=== PATIENT | female | born 1980 | race Caucasian/White ===

== ENCOUNTER → 2017-03-19 | Outpatient (CLI) | payer BC ==
[2016-02-05 03:57] VITALS: BP 105/65
--- NOTE | 2017-03-19 10:45 | MRI ---
MRI SPINE CERVICAL WITHOUT CONTRAST CLINICAL HISTORY: 36-year-old female with neck pain radiating into her right arm. COMPARISON: None. Technique: Multiplanar, multisequence MRI images of the cervical spine were obtained without the adm inistration of intravenous contrast. FINDINGS: Straightening of the cervical lordosis is imaged. Alignment is maintained. The craniocervic al junction is normal. Vertebral body and disc space height are maintained. Vertebral marrow and inte rvertebral disc space signal are normal. Patchy T2 STIR hyperintense signal in the right lateral col umn of the cord secondary to right central disc extrusion and uncovertebral joint hypertrophy that pr oduce effacement of the subarachnoid spaces at this level with significant ventral cord flattening an d associated moderate neural foraminal stenosis. The visualized posterior fossa structures are augusto l. C2-C3: No central canal or neural foraminal stenosis. C3-C4: No central canal or neural foraminal stenosis. C4-C5: Mild uncovertebral joint hypertrophy without central canal or neural foraminal stenosis. C5-C6: Large right central disc extrusion that effaces the right ventral subarachnoid space with sign ificant flattening of the right ventral cord with edema. Mild right neural foraminal stenosis seconda ry to disc extrusion and uncovertebral joint hypertrophy. Central canal measures 9.1 mm. C6-C7: No central canal or neural foraminal stenosis. C7-T1: No central canal or neural foraminal stenosis. Paraspinous soft tissues are unremarkable. IMPRESSION: Right central disc extrusion superimposed upon uncovertebral joint hypertrophy at C5-C6 that produces significant flattening of the right ventral cord with edema/myelomalacia and associated mild neural foraminal stenosis. Reported By:
== END | disposition home or self-care (01) ==
LOC: RAD 08:31
PROVIDERS: ATTEND Internal Medicine
DX: M50.222 Other cervical disc displacement at C5-C6 level (principal)
CPT/HCPCS: 72141

== ENCOUNTER → 2017-06-02 | Outpatient (CLI) | payer BC ==
[2016-02-05 03:57] VITALS: BP 105/65
--- NOTE | 2017-06-02 16:57 | RAD ---
Examination: Cervical spine, five views History: Brachials radiculitis Findings: AP and lateral views were obtained including lateral views in flexion and extension. Normal curvature, segmentation and alignment with preserved disc spaces and normal prevertebral soft tissue s. There is no instability or malalignment between flexion and extension. The C1-2 complex appears no rmal. Impression: No acute or significant cervical spine findings. Reported By:
--- NOTE | 2017-06-03 11:54 | MRI ---
MR right shoulder without contrast Indication: Right shoulder pain and popping. Comparison: No similar priors currently available. Technique: Multiplanar multi sequence imaging through the right shoulder without contrast. Findings: There is type 2 acromion with mild AC joint degenerative change. No muscle belly atrophy se en. Bone marrow signal is normal. Neurovascular structures are normal. There is trace subacromial/sub deltoid bursal fluid. There is mild infraspinatus tendinosis without high-grade tear. Supraspinatus a nd subscapularis are intact. There is high signal in the superior glenoid labrum see coronal image 9, compatible with small nondisplaced not tear. Intraarticular biceps tendon is grossly intact. Impression: 1. SLAP tear of the superior glenoid labrum suspected. There is no effusion. 2. Mild infraspinatus tendinosis without high-grade partial or full-thickness rotator cuff tear ident ified. 3. Minimal AC joint DJD. Reported By:
== END ==
LOC: RAD 15:32
PROVIDERS: ATTEND Neurological Surgery
DX: M75.101 Unspecified rotator cuff tear or rupture of right shoulder, not specified as traumatic (principal); M54.12 Radiculopathy, cervical region
CPT/HCPCS: 72050; 73221